=== PATIENT | female | born 1955 | race Caucasian/White ===

== ENCOUNTER → 2016-09-14 | Day surgery (SDC) | payer OTHER ==
[~2016-09-14] MED LIST: ADVAIR 1001 DISK W/D PO; BREO ELLIPTA 21 EACH INH; BUPROPION HCL150 M2 PO; BUSPAR PO; CARAFATE PO; CLARINEX5 MG PO; COMBIVENT INH14.7 GM INH; DICYCLOMINE HCL20 MG PO; ESGIC CAPSULE1 CAP PO; HCTZ PO; HYDROCODON-ACE1 EAC5 PO; HYDROCODON-ACE1 EAC8 PO; IBUPROFEN800 MG PO; KCL PO; LODINE PO; LOTREL 10-20 M1 EACH PO; LOTREL 5/10 MG1 CAP PO; LOTREL 5/20 MG1 CAP PO; NEURONTIN300 MG PO; NEXIUM PO; NILSTAT PO; PAXIL PO; PHENERGAN PO; RELAFEN500 MG PO; ROBAXIN 750750 MG PO; ROBAXIN PO; SINGULAIR PO; SYMBICORT INH; TOPIRAMATE100 MG PO; WELCHOL625 MG PO; ZETIA PO
--- NOTE | ~2016-09-14 | OR ---
Unit #: [id number] #: [id number] Patient: KRISTIN VALDES [id number] [address] [place], [place] [address] [id number] O MR#: [id number] NAME: KRISTIN VALDES ROOM: Date of Procedure: 09/14/2016 Admission Date: 09/14/2016 Surgeon: Harmeet Palmer M.D. : 1955 Attending Physician: Harmeet Palmer M.D. OPERATIVE REPORT JOB NOTE: CC: PAIN CENTER PREOPERATIVE DIAGNOSES 1. Back pain. 2. Lumbar facet disease. 3. Radiculopathy. POSTOPERATIVE DIAGNOSES 1. Back pain. 2. Lumbar facet disease. 3. Radiculopathy. PROCEDURE PERFORMED Diagnostic therapeutic bilateral L4-L5 and L5-S1 facet injections. INDICATIONS FOR PROCEDURE The patient is a 61-year-old female with back greater than bilateral lower extremity pain left much greater than right. The patient has been treated in the past with 4 successful use of epidural steroids done 5 years ago generally give her few weeks improvement. She has failed therapy and medical management alone. Workup did demonstrates severe facet disease at the L5-S1 level bilaterally, moderately severe at L4-L5. She also has disk extrusion at L4-L5, worse at L5-S1, though the remainder lateralized to the right, worse radicular pain in this patient to the left. Plan is for trial of diagnostic and therapeutic facet injections based on her history, pathology, symptomatology, and treatment options. DESCRIPTION OF PROCEDURE The patient was placed in prone position. Standard monitors were applied. 2 mg of Versed were given for sedation and anxiolysis, which were adequate. Vital signs remained stable. Sterile prep and drape then of the lumbar area was performed. The skin then overlying the left L4-L5 and L5-S1 facet joints localized with 1% lidocaine. A 22-gauge Quincke point spinal needle was then advanced at these levels with fluoroscopic guidance to bring the needle tip to within the edge of those respective facet joints. After this was confirmed with fluoroscopy, a dose of 1 mL of a mixture of 80 mg of Depo-Medrol and 3 mL of 0.25% bupivacaine were deposited, 0.5 mL within the joint and 0.5 mL just outside the joint. The needles were flushed and removed. The exact same procedure was then repeated on the right at the L4-L5 level and L5-S1 facet joints. The same dosing of medications being deposited after confirming proper needle tip placement within the right L4-L5 and L5-S1 facet joints by using Unit #: [id number] #: [id number] Patient: KRISTIN VALDES fluoroscopy. The needles were flushed and removed. The patient tolerated the procedure well. She was discharged to the recovery room in stable condition. Dictated by... Melania Echeverria/christopher TD: 09/14/2016 23:31 JOB #: [id number] OPERATIVE REPORT Page 1 of 1 X Harmeet Palmer MD X PROCEDURE OPERATIVE NOTE
== END | disposition home or self-care (01) ==
LOC: CCSC 08:07
DX: M47.27 Other spondylosis with radiculopathy, lumbosacral region (principal); M51.17 Intervertebral disc disorders with radiculopathy, lumbosacral region
CPT/HCPCS: J1040; J2250

== ENCOUNTER → 2017-03-08 | Day surgery (SDC) | payer OTHER ==
--- NOTE | ~2017-03-08 | OR ---
Unit #: [id number] #: [id number] Patient: KRISTIN VALDES [id number] [address] [place], [place] [address] [id number] O MR#: [id number] NAME: KRISTIN VALDES ROOM: Date of Procedure: 03/08/2017 Admission Date: 03/08/2017 Surgeon: Harmeet Palmer M.D. : 1955 Attending Physician: Harmeet Palmer M.D. Primary Care Physician: Nolan Garcia Jr., M.D. OPERATIVE REPORT JOB NOTE: CC: PAIN CENTER PREOPERATIVE DIAGNOSES Back pain, lumbar disk herniation, degenerative lumbar facet disease. POSTOPERATIVE DIAGNOSES Back pain, lumbar disk herniation, degenerative lumbar facet disease. PROCEDURE PERFORMED Lumbar facet injection x2 levels with intravenous sedation and fluoroscopic guidance for needle localization. INDICATIONS FOR PROCEDURE The patient is a 61-year-old female with return of severe back pain associated with known significant facet arthropathy. She failed to settle with epidural steroids with rehabilitation and medical management alone. She did very well with facet injections bilaterally at L4-L5 and L5-S1, getting near 100% improvement for over 5 months and then graduated return of the pain about a month or so. The pain is in its the same distribution which was in the last point. Based on her response, pathology, symptomatology, and options, we are going to proceed with repeat facet injections today. DESCRIPTION OF PROCEDURE The patient was placed in a prone position. Standard monitors were applied. 2 mg of Versed were given for sedation and anxiolysis, which were adequate. Vital signs remained stable. Sterile prep and drape then of the lumbosacral area was performed. The skin overlying the left-sided L4-L5 and L5-S1 facets were localized with 1% lidocaine using fluoroscopic guidance. At each of these levels, a 22-gauge Quincke point spinal needle was advanced with fluoroscopic guidance to bring the needle tip to within the edge of the respective L4-L5 and L5-S1 facet joints. After confirming this with fluoroscopy, a dose of 1 mL of a mixture of 80 mg of Depo-Medrol and 3 mL of 0.25% bupivacaine were deposited. The patient tolerated this part of procedure well. The needles were flushed and removed. The exact same procedure was then repeated on the right side of the L4-L5 and L5-S1 levels using fluoroscopic guidance to guide local to within the edge of the respective L4-L5 and L5-S1 facet joints. 1 mL of the same injectate was then deposited, 0.5 mL within the joint and 0.5 mL just outside the joint. The needles were flushed and removed. The patient tolerated the procedure well and was discharged to the recovery room in stable condition. Unit #: [id number] #: [id number] Patient: KRISTIN VALDES Dictated by... Melania Echeverria/christopher TD: 03/08/2017 13:43 JOB #: [id number] OPERATIVE REPORT Page 1 of 1 X Harmeet Palmer MD X PROCEDURE OPERATIVE NOTE
== END | disposition home or self-care (01) ==
LOC: CCSC 07:03
DX: M51.36 Other intervertebral disc degeneration, lumbar region (principal); M53.86 Other specified dorsopathies, lumbar region; I10 Essential (primary) hypertension; M48.06 Spinal stenosis, lumbar region; M43.16 Spondylolisthesis, lumbar region; M51.26 Other intervertebral disc displacement, lumbar region; M50.30 Other cervical disc degeneration, unspecified cervical region; Z88.1 Allergy status to other antibiotic agents; Z88.2 Allergy status to sulfonamides; Z88.5 Allergy status to narcotic agent; Z88.8 Allergy status to other drugs, medicaments and biological substances; Z91.040 Latex allergy status; Z79.891 Long term (current) use of opiate analgesic; Z79.899 Other long term (current) drug therapy; Z98.1 Arthrodesis status
CPT/HCPCS: J1040; J2250